=== PATIENT | male | born 1955 | race Caucasian/White ===

== ENCOUNTER 2017-02-17 09:01 | Day surgery (SDC) | payer OTHER ==
--- NOTE | 2017-02-16 17:46 | PREOPHP ---
DATE OF ADMISSION: 02/17/2017 HISTORY: A 61-year-old male patient seen in November 2016 for evaluation of nasal sinus problems compl aining of recurrent sinus infections, diminished sense of smell and taste and nasal obstruction. Ex amination at that time demonstrated septal deviation with clinical evidence of chronic sinusitis ve rified on CAT scan evaluation. The patient is now admitted to the hospital for corrective nasal heather pedro. PAST MEDICAL HISTORY: ALLERGIES: NONE. MEDICAL CONDITIONS: High blood pressure. MEDICATIONS: Glaucoma drops. PRIOR SURGERY: Eye surgery. CLOTTING DISORDERS: None. HABITS: Alcohol:. Social. Tobacco and Recreational drugs: None. PHYSICAL EXAMINATION GENERAL: Well-developed, well-nourished male patient in no acute distress. HEAD: Normocephalic. No masses or deformities. Ears and tympanic membranes normal. Nose: Obstr uctive septal deviation with turbinate hypertrophy and polyps. Oropharynx clear. NECK: No masses or adenopathy. CHEST: Clear to P and A. HEART: Regular sinus rhythm without murmur. ABDOMEN: Soft, bowel sounds normal. No masses or megaly. EXTREMITIES: Full range of motion without deformity. NEUROLOGIC: Physiologic. RECTAL: Not done. IMPRESSION: Septal deviation with chronic sinusitis and polyposis. RECOMMENDATIONS: Admit for surgery. Dictated By: LILIANE POLLARD/LUNA Conf#: [id number] DID#: [id number]
[~2017-02-17] VITALS: Ht 170.2 cm; Wt 76.8 kg
[2017-02-17] VITALS (15 sets, daily range): BP systolic 139–175; BP diastolic 81–98; PULSE 50–117; RESP 16–18; Ht 170.2 cm; Wt 76.8 kg
[2017-02-17] MEDS ORDERED: AMLO1CAP8 PO (10:01)
[2017-02-17] MEDS ORDERED: AMLO1CAP2 PO (10:01)
[2017-02-17] MEDS ORDERED: COCAINE 4% 4 ML TOP ONE (11:26)
[2017-02-17] MEDS ORDERED: BACITRACIN/POLYMYXIN 28.35 GM OINT TOP ONE (11:27)
[2017-02-17] MEDS ORDERED: LIDOCAINE 2%/EPI 30 ML INJ ONE (11:27)
[2017-02-17] MEDS ORDERED: PROPOFOL 20 ML ONE (11:34)
[2017-02-17] MEDS ORDERED: FENTAnyl 50 MCG/ML VIAL ONE (11:34)
[2017-02-17] MEDS ORDERED: MIDAZOLAM 1 MG/ML 2 ML INJ ONE (11:34)
[2017-02-17] MEDS ORDERED: LIDOCAINE 2% (SDV) 5 ML INJ ONE (11:34)
[2017-02-17] MEDS ORDERED: SUCCINYLCHOLINE CHLORIDE 100 MG/5 ML SYG IV ONE (11:38)
[2017-02-17] MEDS ORDERED: DEXAMETHASONE 4 MG/ML 1 ML INJ ONE (11:58)
[2017-02-17] MEDS ORDERED: ONDANSETRON 4 MG INJ ONE (11:58)
[2017-02-17] MEDS ORDERED: METOCLOPRAMIDE 10 MG INJ ONE (11:58)
[2017-02-17] MEDS ORDERED: HYDROmorphONE (0.2 MG/ML) 10ML SYG IV PRN ×2 (12:30)
[2017-02-17] MEDS ORDERED: FENTAnyl 50 MCG/ML VIAL IV PRN (12:30)
[2017-02-17] MEDS ORDERED: DIPHENHYDRAMINE 50 MG INJ IV PRN (12:30)
[2017-02-17] MEDS ORDERED: OXYCODONE/ACETAMINOPHEN (5/325) TAB PO PRN ×2 (12:30)
[2017-02-17] MEDS ORDERED: PROCHLORPERAZINE 10 MG INJ IV PRN (12:30)
[2017-02-17] MEDS ORDERED: MEPERIDINE 25 MG INJ IV PRN (12:30)
[2017-02-17] MEDS ORDERED: ONDANSETRON 4 MG INJ IV PRN (12:30)
[2017-02-17] MEDS ORDERED: LABETALOL HCL 20MG INJ IV PRN (12:30)
[2017-02-17] MEDS ORDERED: hydrALAzine 20 MG INJ IV PRN (12:30)
[2017-02-17] MEDS ORDERED: HYDROCODONE/APAP (7.5/325) TAB PO PRN (13:30)
--- NOTE | 2017-02-17 15:49 | OPR ---
DATE OF OPERATION: 02/17/2017 PREOPERATIVE DIAGNOSES: Chronic sinusitis, septal deviation, turbinate hypertrophy, polyposis. POSTOPERATIVE DIAGNOSES: Chronic sinusitis, septal deviation, turbinate hypertrophy, polyposis. OPERATION PERFORMED: Septoplasty with turbinate reduction, polypectomy, bilateral maxillary endosco pic sinus surgery, bilateral anterior, posterior ethmoid endoscopic sinus surgery. SURGEON: Alexandru Rutherford MD DESCRIPTION OF PROCEDURE: The patient brought to the operating room under parenteral sedation, gene ral oroendotracheal anesthesia with the patient in the supine position, sterile sheets and drapes ap plied. Nose anesthetized topically with 5% cottonoid cocaine and with Xylocaine 1%, epinephrine 1:1 00,000. The inferior turbinate bones were lightly crushed and outfractured. A left septal hemitran sfixion incision was made, elevating septal flaps bilaterally. The quadrilateral cartilage was deta ched from the crest of the premaxilla and vertically [id number] cut to correct cartilaginou s obstruction. The bony septum was mobilized with a [place] forceps and brought to the midline. Th e incision was closed with interrupted 4-0 chromic. Polyps were removed from both middle meatus. T hen, working with 0 and 30-degree telescopes on the left side, the middle turbinate was medialized. The uncinate process was removed and an anterior, posterior ethmoidectomy was performed. Polyps we re removed from the ostium of the left maxillary sinus, which was enlarged with a backbiting forceps . The right side was then similarly treated with removal of the uncinate process, followed by an an terior, posterior ethmoidectomy and middle meatal antrostomy using a backbiting forceps. The sinus cavities were then suctioned. The nose was packed with bacitracin impregnated NasoPore sponge. A d rip pad applied and the procedure terminated. The patient awakened and extubated in the operating r oom, returned to recovery in excellent condition. ESTIMATED BLOOD LOSS: Nil. COMPLICATIONS: None. Dictated By: ALEXANDRU RUTHERFORD MD SC/NTS Conf#: [id number] DID#: [id number]
== END 2017-02-17 15:10 | disposition home or self-care (01) ==
LOC: SDS 09:01
PROVIDERS: ATTEND Otolaryngology Otolaryngology/Facial Plastic Surgery
DX: J34.2 Deviated nasal septum (principal); J32.8 Other chronic sinusitis
CPT/HCPCS: 30140; 30520; 31255; 31256; 88304; J1100; J2250; J2405; J2765; J3010; J7999